=== PATIENT | male | born 1985 ===

== ENCOUNTER 2018-03-09 13:46 | Emergency (ER) | payer OTHER, BC ==
[2018-03-09 14:09] VITALS: BP 138/89; PULSE 78; RESP 18; TEMP 98.5; O2SAT 99
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
== END 2018-03-09 15:47 | disposition home or self-care (01) ==
LOC: H.ER 13:46
DX: S63.502A Unspecified sprain of left wrist, initial encounter (principal); V47.5XXA Car driver injured in collision with fixed or stationary object in traffic accident, initial encounter